=== PATIENT | male | born 1950 | race Caucasian/White ===

== ENCOUNTER 2017-01-20 07:09 | Emergency (ER) | payer OTHER, BC ==
[2017-01-20 07:28] VITALS: BP 140/92; PULSE 58; TEMP 97.7; BMI 24.4
--- NOTE | 2017-01-20 07:42 | PDOC ---
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 ) Exam Limitations: No Limitations - History of Present Illness Timing/Duration: 24 hours Severity: moderate Modifying Factors: improves with: cold therapy, rest Associated Symptoms: reports: denies symptoms Past History - Travel Traveled outside of the country in the last 30 days: No Close contact w/someone who was outside of country & ill: No - Past Medical History Allergies/Adverse Reactions: Allergies Allergy/AdvReac Type Severity Reaction Status Date / Time No Known Allergies Allergy Verified 01/20/17 07:14 Home Medications: Ambulatory Orders Atorvastatin Ca [Lipitor] 20 mg PO DAILY 10/14/11 Losartan Potassium 160 mg PO DAILY 01/20/17 COPD: No HTN: Yes Hypercholesterolemia: Yes - Surgical History Orthopedic Surgery: Yes ( arthroscopy knee) - Suicide/Smoking/Psychosocial Hx Smoking Status: No Smoking History: Current every day smoker Years of Tobacco Use: 25 Have you smoked in the past 12 months: Yes Number of Cigarettes Smoked Daily: 20 Information on smoking cessation initiated: Yes 'Breaking Loose' booklet given: 01/20/17 Hx Alcohol Use: No Drug/Substance Use Hx: No Substance Use Type: None Review of Systems - Review of Systems Able to Perform ROS?: Yes Is the patient limited Algerian proficient: Yes Constitutional: No: Symptoms Reported, See HPI, Chills, Diaphoresis, Fever, Loss of Appetite, Malaise, Night Sweats, Weakness, Weight Stable, Unintentional Wgt. Loss, Unexplained wgt Loss, Other HEENTM: No: Symptoms Reported, See HPI, Eye Pain, Blurred Vision, Tearing, Recent change in vision, Double Vision, Cataracts, Ear Pain, Ocular Prothesis, Ear Discharge, Nose Pain, Nose Congestion, Tinnitus, Nose Bleeding, Hearing Loss , Throat Pain, Throat Swelling, Mouth Pain, Dental Problems, Difficulty Swallowing, Mouth Swelling, Other Respiratory: No: Symptoms reported, See HPI, Cough, Orthopnea, Shortness of Breath, SOB with Exertion, SOB at Rest, Stridor, Wheezing, Productive cough, Hemoptysis, Other Cardiac (ROS): No: Symptoms Reported, See HPI, Chest Pain, Edema, Irregular Heart Rate, Lightheadedness, Palpitations, Syncope, Chest Tightness, Other ABD/GI: No: Symptoms Reported, See HPI, Abdominal Distended, Abd. Pain w/ defecation, Blood Streaked Bowels, Constipated, Diarrhea, Difficulty Swallowing , Nausea, Poor Appetite, Poor Fluid Intake, Rectal Bleeding, Vomiting, Indigestion, Abdominal cramping, Tarry Stools, Other Musculoskeletal: Yes: See HPI, Joint Pain Integumentary: No: Symptoms Reported, See HPI, Bruising, Change in Color, Change in Hair/Nails, Dryness, Erythema, Flushing, Lesions, Lumps, Pallor, Pruritus, Rash, Sweating, Other Neurological: Yes: See HPI Psychiatric: No: Anxiety, Depression, Frequent Crying, Stressors, Sleep Pattern Change, Emotional Problems, Mood Swings, Change in Appetite, Other Endocrine: No: Symptoms Reported, See HPI, Excessive Sweating, Flushing, Intolerance to Cold, Intolerance to Heat, Increased Hunger, Increased Thirst, Increased Urine, Unexplained Weight Gain, Unexplained Weight Loss, Change in Weight, Other All Other Systems: Reviewed and Negative *Physical Exam - Vital Signs Last Vital Signs Temp Pulse Resp BP Pulse Ox 97.7 F 58 L 20 140/92 98 01/20/17 07:09 01/20/17 07:09 01/20/17 07:09 01/20/17 07:09 01/20/17 07:09 - Physical Exam General Appearance: Yes: Nourished, Appropriately Dressed, Moderate Distress HEENT: positive: [place] Neck: positive: Trachea midline, Supple. negative: Tender Respiratory/Chest: negative: Chest Tender, Lungs Clear, Normal Breath Sounds, Respiratory Distress, Accessory Muscle Use, Labored Respiration, Rapid RR, Decreased Breath Sounds, Paradoxal Breathing, Crackles, Rales, Rhonchi, Stridor , Wheezing, Hyperresonant, Dullness, Plerual Rub, Other Cardiovascular: positive: Regular Rhythm Musculoskeletal: positive: Normal Inspection, Muscle Spasm, Other (Swelling and tenderness in the Achile's tendon of the affected leg with limited, painful flexion of the foot at active motion and painful when pushing the sole of the foot upwards) Extremity: positive: Normal Capillary Refill, Tender. negative: Normal Range of Motion Integumentary: positive: Normal Color, Dry Neurologic: positive: Fully Oriented, Alert. negative: Normal Mood/Affect Medical Decision Making - Medical Decision Making Patient seen immediately from arrival, after exam X rays ordered, Crutches ordered, patient denied use of it, requested cane which was provided Discussed with hid private orthopedic md, arranged to be seen in his office in an hour for further evaluation incl MRI if deemed appropriate 01/22/17 19:04 *DC/Admit/Observation/Transfer Diagnosis at time of Disposition: Achilles rupture, right Qualifiers: Encounter type: initial encounter Qualified Code(s): S86.011A - Strain of right Achilles tendon, initial encounter - Discharge Dispostion Disposition: HOME Condition at time of disposition: Stable Admit: No - Referrals - Patient Instructions Printed Discharge Instructions: DI for Achilles Tendon Rupture Additional Instructions: Avoid walkng on that leg. See your Othopedic MD, Dr Crowley now as scheduled by us - Post Discharge Activity
== END 2017-01-20 09:05 | disposition home or self-care (01) ==
LOC: FER 07:09
DX: S86.011A Strain of right Achilles tendon, initial encounter (principal); X58.XXXA Exposure to other specified factors, initial encounter; Y93.89 Activity, other specified; Y92.9 Unspecified place or not applicable; F17.210 Nicotine dependence, cigarettes, uncomplicated; I10 Essential (primary) hypertension; E78.00 Pure hypercholesterolemia, unspecified
CPT/HCPCS: 73610-TC-RT; 99281-25

== ENCOUNTER 2018-06-28 06:08 | Day surgery (SDC) | payer OTHER, BC ==
--- NOTE | 2018-06-21 10:52 | HP ---
DATE OF ADMISSION: 06/28/2018 BRIEF HISTORY: This is a 67-year-old gentleman with a known left inguinal hernia. He has had this for many years and over the past several months the hernia has gotten significantly larger and now has dropped into his upper scrotum. Patient wished to have this hernia repaired. He complains of having discomfort in the area and a heaviness at times. He has had no nausea, no vomiting, no change in bowel habits. PAST MEDICAL HISTORY: Significant for hypercholesterolemia, hypertension. PAST SURGICAL HISTORY: Right inguinal hernia repair, right arthroscopic surgery. ALLERGIES: None. MEDICATION: Avastatin. SOCIAL HISTORY: Patient smokes a pack of cigarettes per day, he does not drink. PHYSICAL EXAMINATION: ABDOMEN: Soft, nontender, nondistended. GENITOURINARY: Patient examined in the erect and supine position and placed through multiple Valsalva maneuvers. No obvious hernia noted on the right groin. Some laxity noted. The right scrotum and testicles within normal limits. On the left side, he has a large left inguinal hernia with extension to the left proximal scrotum. Left testicle and scrotum within normal limits. IMPRESSION/PLAN: Very large complex left inguinal scrotal hernia: This is a 67-year-old gentleman with an enlarging left inguinal scrotal hernia. He has become more symptomatic with this hernia and at this point wishes to have this repaired. Patient will be scheduled for laparoscopic left inguinal herniorrhaphy, at this time with laparoscopy the left side will be examined, and if a recurrent hernia is noted, it will be repaired. If the floor is attenuated it will be reinforced with patch as well. The indications, alternatives, and complications of the procedure discussed. Questions answered. Will plan on obtaining written consent the day of surgery. I specifically discussed the possibility of this gentleman developing a postoperative hydrocele as well as seroma which may or may not resolve given the size and chronicity of left inguinal hernia. He understands this, and so wishes to proceed. SIMONE PITTMAN M.D. [id number]
[2018-06-27 12:53] VITALS: BMI 24.0
[2018-06-28] MEDS ORDERED: TAMSULOSIN HCL 0.4 MG CAP ONE (06:29)
[2018-06-28] MEDS ORDERED: CEFAZOLIN 1 GM/D5W 1 GM/50 ML BAG ONE (06:29)
[2018-06-28] MEDS ORDERED: SODIUM CHLORIDE 0.9% P/F 10 ML VIAL IJ ONE (07:32)
[2018-06-28] MEDS ORDERED: LIDOCAINE HCL/PF 2% SDV 5ML VIAL ONE ×2 (07:32)
[2018-06-28] MEDS ORDERED: KETOROLAC TROMETHAMINE 30 MG/1 ML VIAL ONE (07:32)
[2018-06-28] MEDS ORDERED: ceFAZolin SODIUM 1 GM VIAL ONE (07:32)
[2018-06-28] MEDS ORDERED: DEXAMETHASONE SOD PHOSPHATE 4 MG/1 ML VIAL ONE (07:32)
[2018-06-28] MEDS ORDERED: ROCURONIUM BROMIDE 50 MG/5 ML VIAL ONE (07:40)
[2018-06-28] MEDS ORDERED: MIDAZOLAM HCL 2 MG/2 ML SINGLE DOSE VIAL ONE ×2 (07:40→07:48)
[2018-06-28] MEDS ORDERED: PROPOFOL 20 ML ONE ×2 (07:40→08:41)
[2018-06-28] MEDS ORDERED: BUPIVACAINE HCL/PF 0.5% (5MG/ML) 10 ML VIAL ONE (07:47)
[2018-06-28] MEDS ORDERED: ceFAZolin SODIUM 1 GM VIAL IVPB ONE (08:15)
[2018-06-28] MEDS ORDERED: KETAMINE HCL 200 MG/20 ML VIAL ONE (08:15)
[2018-06-28] MEDS ORDERED: ePHEDrine SULFATE 50 MG/1 ML AMPULE ONE (08:24)
[2018-06-28] MEDS ORDERED: NEOSTIGMINE METHYLSULFATE 0.5 MG/ML - 10 ML MDV ONE (08:43)
[2018-06-28] MEDS ORDERED: GLYCOPYRROLATE 0.2 MG/1 ML VIAL ONE (08:45)
[2018-06-28] MEDS ORDERED: ONDANSETRON 4 MG/2 ML VIAL IVPUSH PRN (10:48)
[2018-06-28] MEDS ORDERED: oxyCODONE HCL 5 MG TABLET PO PRN (10:48)
[2018-06-28] MEDS ORDERED: LACTATED RINGERS SOLUTION 1,000 ML IV SCH (11:00)
[2018-06-28 12:12] VITALS: BP 132/73; PULSE 66; TEMP 97.4
--- NOTE | 2018-06-28 12:58 | OP ---
DATE OF OPERATION: 06/28/2018 PREOPERATIVE DIAGNOSIS: Complex large, chronically incarcerated left inguinoscrotal hernia. POSTOPERATIVE DIAGNOSES: Complex large, chronically incarcerated left inguinoscrotal hernia, recurrent right inguinal hernia. PROCEDURE: Laparoscopic repair of incarcerated left inguinal hernia with mesh, laparoscopic repair of recurrent right inguinal hernia with mesh. SURGEON: Clement Nath MD FINISH PAINTER: Eduardo Carvajal DO ANESTHESIA: Elizabeth Palacios MD (general). ESTIMATED BLOOD LOSS: Minimal. SPECIMEN: None. INDICATION FOR PROCEDURE: This is a 67-year-old gentleman symptomatic from a large left inguinal hernia. He wished to have this repaired. DESCRIPTION OF PROCEDURE: Patient identified, appropriately positioned on the operating room table. After placement of general anesthesia, the abdomen prepped and draped in the usual sterile fashion with ChloraPrep. An infraumbilical incision was made, deepened through subcutaneous tissue. The fascia of the rectus muscle on the left identified, divided and the muscle split under direct vision. Dissector balloon followed by a structural balloon placed. Also under direct vision, a suprapubic 11-mm port placed. The following structures on the left side identified: Pubic tubercle, Ash's ligament, inferior epigastric vessels, spermatic cord, and lateral abdominal wall. During this dissection, patient was noted to have a very large left indirect inguinal hernia with a moderate-sized cord lipoma. He also had significant attenuation of the direct inguinal floor. The loose areolar tissue underlying the direct space was then reduced and the large indirect inguinal hernia sac brought back in the preperitoneal space along with the lipoma bluntly. A 5 x 6 piece of Versatex was keyholed, placed through the suprapubic port site. The mesh wrapped around the cord structures laterally to reconstruct the internal ring. Laterally, mesh anchored to the anterior abdominal wall and lateral abdominal wall. Medially, mesh anchored to the anterior abdominal wall, pubic tubercle, and Ash's ligament. Upon completion of the left side, similar structures on the right side identified. On the right side he had a small direct inguinal hernia. This contained fat. This reduced back into the preperitoneal space. The cord identified. The cord skeletonized. The indirect ring was attenuated. There was a small lipoma which was reduced with blunt dissection. Another 5 x 6 piece of Versatex was keyholed, placed through the suprapubic port site. The mesh wrapped around the cord structures laterally to reconstruct the internal ring. Laterally, mesh anchored to the anterior abdominal wall and lateral abdominal wall. Medially, the mesh well overlapped in the midline, anchored to the anterior abdominal wall, pubic tubercle, and Ash's ligament. The preperitoneal space desufflated under direct vision, the operative field examined, noted to be hemostatic. Ports were removed. Port sites hemostatic. The fascia of both port sites reapproximated with interrupted 0 Vicryl suture. All skin closed with 4-0 subcuticular Biosyn. All anterior abdominal, lateral abdominal wall anchors placed under direct palpation. The mesh used was Versatex 15 x 15 (x2), and the anchoring system was AbsorbaTack. Sponge, needle and instrument counts were correct. ATTESTATION: Brief operative note handwritten on the preprinted form. [facility] queried prior to giving any narcotics. Guerda LITTLE [id number]
== END 2018-06-28 12:00 | disposition home or self-care (01) ==
LOC: JASU-SURG 06:08
PROVIDERS: ATTEND Surgery
PROC: 0YUA4JZ Supplement Bilateral Inguinal Region with Synthetic Substitute, Percutaneous Endoscopic Approach (ICD-10-PCS; principal; 2018-06-28 08:00)
DX: K40.01 Bilateral inguinal hernia, with obstruction, without gangrene, recurrent (principal)
CPT/HCPCS: 94760